=== PATIENT | male | born 1995 | race Caucasian/White ===

== ENCOUNTER 2018-08-12 02:41 | Emergency (ER) | payer OTHER ==
[~2018-08-12] VITALS: Ht 182.9 cm; Wt 112.8 kg
[2018-08-12 02:44] VITALS: TEMP 98.9
[2018-08-12] MEDS ORDERED: FLEXERIL 1010 MG/TAB PO (03:20)
[2018-08-12] MEDS ORDERED: ULTRAM 50MG TAB50 MG PO (03:20)
[2018-08-12 04:00] VITALS: BP 126/82; PULSE 86
== END 2018-08-12 04:08 | disposition home or self-care (01) ==
LOC: COL.ER 02:41
DX: R22.0 Localized swelling, mass and lump, head (principal); F17.210 Nicotine dependence, cigarettes, uncomplicated; Z88.5 Allergy status to narcotic agent; Z90.89 Acquired absence of other organs

== ENCOUNTER 2018-09-07 17:53 | Emergency (ER) | payer OTHER ==
[~2018-09-07] VITALS: Ht 182.9 cm; Wt 109.1 kg
[~2018-09-07 17:53] MED LIST: FLEXERIL 1010 MG/TAB PO; ULTRAM 50MG TAB50 MG PO
[2018-09-07 17:58] VITALS: TEMP 98.1
[2018-09-07 19:30] VITALS: BP 176/90; PULSE 102
== END 2018-09-07 19:30 | disposition home or self-care (01) ==
LOC: COL.ER 17:53
DX: M54.6 Pain in thoracic spine (principal); M54.5 Low back pain
CPT/HCPCS: J1885

== ENCOUNTER 2021-06-12 20:48 | Emergency (ER) | payer SELFPAY ==
[~2021-06-12] VITALS: Ht 185.4 cm; Wt 95.5 kg
[2021-06-12 21:29] VITALS: TEMP 98.1
[2021-06-13 00:48] VITALS: BP 135/91; PULSE 87
[2021-06-13 01:15] LABS: HIV 1/2 Antibodies Non-Reactive; HIV-1p24 Antigen Non-Reactive
== END 2021-06-13 00:48 | disposition home or self-care (01) ==
LOC: COL.ER 20:48
PROVIDERS: Student in an Organized Health Care Education/Training Program
DX: N48.89 Other specified disorders of penis (principal)
CPT/HCPCS: 86780